=== PATIENT | female | born 1940 | race Caucasian/White ===

== ENCOUNTER 2017-05-27 10:49 | Outpatient (CLI) | payer MEDICARE ==
--- NOTE | 2017-05-27 13:21 | MMO ---
BILATERAL SCREENING MAMMOGRAM: INDICATION: Annual exam. COMPARISON: Prior exam dated 02/21/15. FINDINGS: The interpretation of this examination was assisted with computer-aided detection. There are scattered fibroglandular elements bilaterally. There are benign-appearing calcifications and vascular calcifications within both breasts. There are benign scattered densities within both breasts. No suspicious mass, cluster of microcalcifications, or area of architectural distortion is evident. IMPRESSION: BI-RADS category 2 - benign. Recommend routine annual mammographic screening. POS: [facility]
== END 2017-05-27 10:50 | disposition home or self-care (01) ==
LOC: SCSMAMMO 10:49
PROVIDERS: ATTEND Family Medicine
DX: Z12.31 Encounter for screening mammogram for malignant neoplasm of breast (principal)
CPT/HCPCS: 77067; G0202

== ENCOUNTER 2018-05-28 09:00 | Outpatient (CLI) | payer MEDICARE ==
--- NOTE | 2018-05-28 16:14 | MMO ---
BILATERAL SCREENING MAMMOGRAMS: Date: 05/28/18 Comparison made to prior exams from 2017 and 2016. This patient's mammogram was interpreted with the assistance of computer-aided detection. FINDINGS: Scattered fibroglandular densities. There are scattered benign calcifications. There are scattered be nign-appearing densities in both breasts, which appear stable. No suspicious finding or interval oliver ge. Recommend one year follow-up. IMPRESSION: BIRADS 2: Benign Finding(s) POS: ASHWINI
== END 2018-05-28 09:01 | disposition home or self-care (01) ==
LOC: SCSMAMMO 09:00
PROVIDERS: ATTEND Family Medicine
DX: Z12.31 Encounter for screening mammogram for malignant neoplasm of breast (principal)
CPT/HCPCS: 77067

== ENCOUNTER 2019-02-06 20:30 | Outpatient (CLI) | payer MEDICARE | END 2019-02-06 20:31 | disposition home or self-care (01) | LOC: SLEEPLAB 20:30 | PROVIDERS: ATTEND Family Medicine | DX: G47.33 Obstructive sleep apnea (adult) (pediatric) (principal); E11.9 Type 2 diabetes mellitus without complications; I10 Essential (primary) hypertension; R09.89 Other specified symptoms and signs involving the circulatory and respiratory systems; E66.9 Obesity, unspecified; R53.83 Other fatigue; R06.83 Snoring; Z68.35 Body mass index [BMI] 35.0-35.9, adult | CPT/HCPCS: 95810 ==

== ENCOUNTER 2019-04-01 20:30 | Outpatient (CLI) | payer MEDICARE | END 2019-04-01 20:31 | disposition home or self-care (01) | LOC: SLEEPLAB 20:30 | PROVIDERS: ATTEND Family Medicine | DX: G47.33 Obstructive sleep apnea (adult) (pediatric) (principal); R53.83 Other fatigue; E66.9 Obesity, unspecified; I10 Essential (primary) hypertension; E11.9 Type 2 diabetes mellitus without complications | CPT/HCPCS: 95811 ==

== ENCOUNTER 2019-11-21 08:51 | Outpatient (CLI) | payer MEDICARE ==
--- NOTE | 2019-11-21 11:19 | CT ---
CT HEAD WITHOUT CONTRAST: Date: 11/21/2019 INDICATION: Follow-up head injury. Patient fell 4 weeks ago with right scalp hematoma at the right forehead. Asse ss hematoma. COMPARISON: CT head dated 10/26/2019 performed at [facility]. FINDINGS: The scalp hematoma over the right frontal bone has significantly decreased in size. There is no evide nce of scalp fluid or abscess. There is no evidence of skull fracture. No intracranial hemorrhage. There is lucency in the subcortical white matter of the right frontal lob e which is stable and may represent mild chronic ischemic change. IMPRESSION: 1. Scalp hematoma over the right frontal bone is again seen but has significantly decreased in size. 2. No acute intracranial abnormality. POS: [facility]
== END 2019-11-21 08:52 | disposition home or self-care (01) ==
LOC: SCSCT 08:51
PROVIDERS: ATTEND Family Medicine
DX: S00.03XD Contusion of scalp, subsequent encounter (principal); R26.81 Unsteadiness on feet; R26.89 Other abnormalities of gait and mobility
CPT/HCPCS: 70450